=== PATIENT | male | born 1945 | race Two or more races ===

== ENCOUNTER 2020-05-11 16:01 | Emergency (ER) | payer MEDICARE, MEDICAID ==
[~2020-05-11] VITALS: Ht 157.5 cm; Wt 89.4 kg
[~2020-05-11 16:01] MED LIST: LOMOTIL TABLET1 EACH ORAL
--- NOTE | 2020-05-11 16:29 | Emergency Room Report ---
History of Present Illness General Chief Complaint: Chest Pain Source: Patient Present Illness HPI 74-year-old male with no stated prior medical history presents with chief complaint of left substernal chest pressure x4 days. Also has secondary complaint of urinary retention. He states that in order to urinate, he needs to squeeze his left scrotum in order to void. Yesterday it was severe so he took aspirin which made it better. He did not take aspirin today prior to arrival. The pain is associated with nausea and sometimes radiates to the right chest. He denies any recent cardiac evaluation or stress testing. He states that the nausea is accompanied by epigastric pain. He is having normal bowel movements and denies hematuria, melena, hematochezia, diarrhea, testicular pain, fever, vomiting, cough, hemoptysis or any other symptoms. The patient's symptoms were gradual onset, severity was moderate, duration since 4 days. Quality: Pressure Past medical history: None stated Past surgical history: Denies Smoking: Denies Alcohol use: Denies Drug use: Denies Review of systems: CONST: No fevers or chills, No night sweats PULMONARY: No productive cough, No shortness of breath CARDIAC: No chest pain, No palpitations GI: No vomiting, No diarrhea , No melena_or_BRBPR : No dysuria, No hematuria, No discharge NEURO: No new_focal_weakness_or_numbness, No confusion, No vision changes 14 point Review of Systems is otherwise negative except per HPI Physical Exam: GENERAL: Awake_alert_ nontoxic, no acute distress Spo2 97% on RA -normal EYES: Extraocular muscles are intact. Conjunctivae clear. Lids without swelling ENT: External nose and ear normal_in_appearance. Oropharynx clear. Head_ atraumatic, Moist_oral_mucosa NECK: No JVD. No meningismus. No thyromegaly. Supple. Trachea midline RESP: Normal respiratory effort. Symmetric rise. No stridor. Clear_to_ auscultation_No_rales_No_wheezes CARDIAC: Regular rate and regular rhytm. No_significant pedal edema. old well-healed surgical scar to the left upper quadrant. No CVA tenderness to palpation ABDOMEN: Soft. Nondistended. Nontender_No_rebound_or_guarding. exam: Performed with PATRICIA Blake at bedside. Large easily reducible left inguinal hernia. No skin findings. No erythema or cellulitis. No palpable crepitus MSK: Normal muscle tone, without rigidity. Extremities without asymmetric deformity or swelling. SKIN: Warm and dry. No visible cyanosis or pallor NEUROLOGIC: Alert, oriented x3. Motor_and_sensation_grossly_intact. No truncal ataxia. Gait_normal Psych: Normal mood and affect, normal judgment and insight - COORDINATION OF CARE Case was discussed with: Patient Any labs and imaging that were ordered were interpreted as part of the medical decision making: Medical Decision Making/Plan: Differential diagnosis includes acute myocardial infarction, acute coronary syndrome and unstable angina, pulmonary embolism, pneumothorax, pneumonia, and aortic dissection, among others. Patient is currently well appearing with stable vitals. EKG shows nonspecific ST changes isolated in lead III. No evidence of STEMI, and initial troponin is negative. Chest xray shows NAD. No evidence of pneumothorax, pneumonia, or significant pleural effusion. Labs show opponent negative x1. BNP is also negative. No leukocytosis. CT scan of the abdomen and pelvis demonstrates prolapse of the bladder into the left inguinal canal. There is no prolapse of colonic content. On examination, the inguinal hernia is mildly reducible. Do not suspect incarcerated or strangulated inguinal hernia at this time. ED intervention included aspirin, Zofran. Aspirin initially alleviated all pain, however patient again complained of left- sided chest pain a few hours into the ED stay. He was given nitro with relief of symptoms. Also given morphine secondary to abdominal discomfort. However, given that chest pain is currently resolved, risks likely outweigh benefits of IV heparin at this time, so deferred. The pain is not classic for pericarditis or myocarditis, and the patient has no significant risk factors for a pericardial effusion and has stable vitals signs , unlikely to have tamponade. Pain is not likely to be pulmonary embolism, patient has no significant PE risk factors. The presentation is not consistent with dissection, pain is not severe, radiating to back, or tearing in nature. Has normal bilateral radial and pedal pulses. However given patients presentation and risk factors, patient will be admitted for serial troponins and risk stratification and evaluation for likely stress testing. Patient is capitated to [place]. Spoke with Dr Pratt AUTH #[id number] Accepted to [facility] Given the patient's medical needs, appropriate facilities for transfer were discussed and the decision has been made to transfer this patient to [facility]. The receiving facility has the capacity and capabilities to provide care for the patient. I spoke with Dr Pratt who accepted the patient in transfer. The patient has been informed and updated of their current clinical status. The patient has given verbal consent for the transfer. The risks and benefits were explained and the patient verbalizes their understanding. The patient will be transported by ALS. Allergies: Coded Allergies: No Known Allergies (Unverified , 02/27/14) COVID-19 Screening Contact w/high risk pt: No Experienced COVID-19 symptoms?: No COVID-19 Testing performed SEAT COVERER: No Nursing Documentation-[facility] Past Medical History: No Stated History Physical Exam Vital Signs Date Time Temp Pulse Resp B/P (MAP) Pulse Ox O2 Delivery O2 Flow Rate FiO2 05/11/20 16:07 98.1 93 18 130/91 (104) 95 Room Air Sp02 EP Interpretation: reviewed, normal Medical Decision Making Diagnostic Impression: Primary Impression: Chest pain Additional Impressions: Inguinal hernia, left Abdominal pain EKG Diagnostic Results PA Scribe Text 12-lead EKG (interpreted by me) Time: 1612 Indication: Rhythm analysis Tracing visualized and Interpreted by me. Rhythm: Normal sinus rhythm Rate: 86 bpm QTc: 418 Morphology: No_significant_ST_elevations_or_depressions, No STEMI Impression: Normal_sinus_rhythm_without_significant_abnormality Rhythm Strip Diag. Results Rhythm Strip Time: 16:28 EP Interpretation: yes Rate: 93 Rhythm: NSR, no PVC's, no ectopy Chest X-Ray Diagnostic Results Chest X-Ray Diagnostic Results : PA Scribe Text Chest X-Ray: Views: [ 1 ] view(s) Indication: Chest pain Findings: Normal heart size. Mediastinum normal. No infiltrate. Impression: No acute disease The X-ray(s) were independently viewed and interpreted contemporaneously Electronically signed by Vilma maddox DO Reevaluation Time: 18:15 Last Vital Signs Date Time Temp Pulse Resp B/P (MAP) Pulse Ox O2 Delivery O2 Flow Rate FiO2 05/11/20 16:07 98.1 93 18 130/91 (104) 95 Room Air Status: improved Disposition: ADMITTED INPATIENT - Transfer to [facility] Admit Decision Time: 16:29 Condition: Stable Vilma Mcgill D.O. May 11, 2020 16:29
--- NOTE | 2020-05-11 16:30 | NUR ---
ED Nurse Note: Recieved pt from home, here with c/o chest pain x 4 days, denies sob, nausea or any other s/s, pt is ambulatory with steady gait, assisted to bhavna and elissa, placed on search manager and ekg done, iv line placed and labs drawn, will resume care as ordered with close, continuous monitoring, pt smiling and rates pain at 3-4/10 currently.
[2020-05-11 16:37] LABS: BASOPHILS % (AUTO) 1.1 % (0.0-2.0); EOSINOPHILS % (AUTO) 17.7 % (0.0-3.0); HEMATOCRIT 45.5 % (42.0-52.0); HEMOGLOBIN 15.2 G/DL (14.2-18.0); LYMPHOCYTES % (AUTO) 22.8 % (20.0-45.0); MEAN CORPUSCULAR VOLUME 90 FL (80-99); NEUTROPHILS % (AUTO) 50.4 % (45.0-75.0); PLATELET COUNT 264 K/UL (150-450); RED BLOOD COUNT 5.05 M/UL (4.70-6.10); RED CELL DISTRIBUTION WIDTH 12.9 % (11.6-14.8); WHITE BLOOD COUNT 10.2 K/UL (4.8-10.8)
[2020-05-11 16:46] LABS: INR 1.1 (0.9-1.1)
[2020-05-11 16:51] LABS: ANION GAP 9 mmol/L (5-15); BLOOD UREA NITROGEN 12 mg/dL (7-18); CALCIUM 9.6 MG/DL (8.5-10.1); CARBON DIOXIDE 28 MMOL/L (21-32); CHLORIDE 101 MMOL/L (98-107); CREATININE 0.9 MG/DL (0.55-1.30); SODIUM 138 MMOL/L (136-145)
[2020-05-11 17:00] VITALS: BP 135/83
--- NOTE | 2020-05-11 17:00 | NUR ---
ED Nurse Note: Pt returned from imaging, has c/o not being able to urinate and stating he has to squeeze his left testicle in order to go to bathroom, pt asking for pain meds, declines chest pain, replaced on cardiac cath technologist, v/s MD adri informed of new assessment and pt pain level, will monitor for med effectiveness while waiting for results of imaging and dispo info.
[2020-05-11 17:04] LABS: ALANINE AMINOTRANSFERASE 28 U/L (12-78); ALBUMIN/GLOBULIN RATIO 0.9 (1.0-2.7); ALKALINE PHOSPHATASE 93 U/L (46-116); ASPARTATE AMINO TRANSFERASE 17 U/L (15-37); BILIRUBIN,TOTAL 0.4 MG/DL (0.2-1.0)
--- NOTE | 2020-05-11 17:10 | Diagnostic Imaging Report ---
EXAM: CT Abdomen and Pelvis Without Intravenous Contrast CLINICAL HISTORY: PAIN TECHNIQUE: Axial computed tomography images of the abdomen and pelvis without intravenous contrast. CTDI is 10.10 mGy and DLP is 592.10 mGy-cm. One or more of the following dose reduction techniques were used: automated exposure control, adjustment of the mA and/or kV according to patient size, use of iterative reconstruction technique. COMPARISON: No relevant prior studies available. FINDINGS: ABDOMEN: Liver: Diffuse low-attenuation in the liver. Gallbladder and bile ducts: Unremarkable. No calcified stones. No ductal dilation. Pancreas: Unremarkable. No ductal dilation. Spleen: Unremarkable. No splenomegaly. Adrenals: Unremarkable. No mass. Kidneys and ureters: Unremarkable. No obstructing stones. No hydronephrosis. Stomach and bowel: Colonic diverticulosis without acute diverticulitis. No obstruction. PELVIS: Appendix: No findings to suggest acute appendicitis. Bladder: There is a calcification along the wall within the herniated bladder. No stones. Reproductive: Enlarged prostate. ABDOMEN and PELVIS: Intraperitoneal space: Unremarkable. No free air. No significant fluid collection. Bones/joints: Degenerative changes in the spine. No acute fracture. No dislocation. Soft tissues: Large left inguinal hernia containing some herniated bladder. Vasculature: Mild calcification in the abdominal aorta. No abdominal aortic aneurysm. Lymph nodes: Unremarkable. No enlarged lymph nodes. IMPRESSION: 1. Colonic diverticulosis without acute diverticulitis. 2. Hepatic steatosis. 3. Large left inguinal hernia containing portion of the bladder. 4. Enlarged prostate.
--- NOTE | 2020-05-11 17:21 | Diagnostic Imaging Report ---
EXAM: XR Chest, 1 View CLINICAL HISTORY: PAIN TECHNIQUE: Frontal view of the chest. COMPARISON: No relevant prior studies available. FINDINGS: Lungs: No consolidation. Pleural space: Unremarkable. No pneumothorax. Heart: No cardiomegaly. Mediastinum: Unremarkable. Bones/joints: No acute osseous abnormality. IMPRESSION: No acute cardiopulmonary abnormality.
[2020-05-11] MEDS ORDERED: Morphine Sulfate 4mg/ml Inj (IV USE ONLY) IVP ONE (18:00)
[2020-05-11] MEDS ORDERED: Nitroglycerin Subl 0.4mg tab SL PRN (18:00)
--- NOTE | 2020-05-11 18:15 | NUR ---
ED Nurse Note: Meds given for pain effective, pt states "no pain", resting quietly, waiting for transfer for admisison, v/s stable, IV site patent, nad or changes noted, will continue to closely monitor.
[2020-05-11 19:00] VITALS: BP 146/88
--- NOTE | 2020-05-11 19:15 | NUR ---
ED Nurse Note: Pt being transferred to [facility], report called to ED at [phone] and given to AKSHAT Sheth ambulance present for pt ALS transfer, pt IV site patent, no cp or any pain, no sob or labored breathing, pt family in lobby and aware of pt transfer, pt has all belongings, nad noted during pt transport.
[2020-05-11 19:25] VITALS: BP 146/88
== END 2020-05-11 19:25 | disposition other institution (70) ==
LOC: EMR 16:43
DX: R07.9 Chest pain, unspecified (principal); K40.90 Unilateral inguinal hernia, without obstruction or gangrene, not specified as recurrent; R10.9 Unspecified abdominal pain; R33.9 Retention of urine, unspecified; K57.90 Diverticulosis of intestine, part unspecified, without perforation or abscess without bleeding; N40.0 Benign prostatic hyperplasia without lower urinary tract symptoms; K76.0 Fatty (change of) liver, not elsewhere classified
CPT/HCPCS: 36415; 71045; 74176; 80053; 83036; 83690; 83880; 84484; 85025; 85610; 85730; 93005; 96374; 96375; 99285; J2270; J2405; U0002